=== PATIENT | male | born 1950 | race Hispanic/Latino ===

== ENCOUNTER 2024-02-06 06:49 | Day surgery (SDC) | payer OTHER, MEDICARE ==
[2024-02-04 12:15] LABS: BASOPHILS # (AUTO) 0.02 K/uL (0.00-0.20); BASOPHILS % (AUTO) 0.2 % (0.0-5.0); EOSINOPHILS # (AUTO) 0.23 K/uL (0.00-0.70); EOSINOPHILS % (AUTO) 2.3 % (0.0-8.0); HEMATOCRIT 36.1 % (42-54); IMMATURE GRANULOCYTE ABSOLUTE 0.06 K/uL (0-1); LYMPHOCYTES % (AUTO) 20.2 % (21.0-51.0); MEAN CORPUSCULAR HEMOGLOBIN 25.3 pg (27.0-33.0); MEAN CORPUSCULAR HGB CONC 31.6 g/dL (32.0-36.0); MONOCYTES # (AUTO) 0.7 K/uL (0.1-1.0); MONOCYTES % (AUTO) 6.7 % (3.0-13.0); PLATELET COUNT (AUTO) 261 K/uL (130-400); RED BLOOD CELL COUNT(AUTO) 4.51 MIL/uL (4.50-6.20); RED CELL DISTRIBUTION WIDTH 13.5 % (11.0-15.5)
[2024-02-04 12:16] VITALS: BP 189/83; PULSE 61; RESP 18
[2024-02-04 12:26] LABS: POTASSIUM 3.7 mmol/L (3.5-5.1)
[~2024-02-06] VITALS: Ht 154.9 cm; Wt 47.7 kg
[2024-02-06] VITALS (15 sets, daily range): BP systolic 133–167; BP diastolic 69–91; PULSE 60–66; RESP 10–18
[~2024-02-06 06:49] MED LIST: ATOR40TA71 PO; DUTA0.5C37 PO; METF-446 PO; TAMS-1 PO; VALS40TA11 PO
[2024-02-06] MEDS ORDERED: AMOX1TAB16 PO (07:58)
[2024-02-06] MEDS: 0.9%NACL 1000ML 1,000 ML IV ONE (08:20)
[2024-02-06] MEDS: GENTAMICIN 80 MG/NS 100 ML PB 100 ML IV ONE (08:21)
[2024-02-06] MEDS ORDERED: FAMOTIDINE 20MG VIAL IV ONE (10:40)
[2024-02-06] MEDS ORDERED: acetaMINOPHEN 1,000 MG/100 ML VIAL IV ONE (10:40)
[2024-02-06] MEDS ORDERED: LIDOCAINE PF 100MG/5ML (2%) SYRINGE 5ML ONE (11:08)
[2024-02-06] MEDS ORDERED: ROCURONIUM BROMIDE 10MG/1ML 5ML VL ONE (11:09)
[2024-02-06] MEDS ORDERED: PROPOFOL 10 MG/ML 20ML VIAL IV ONE (11:09)
[2024-02-06] MEDS ORDERED: FENTANYL CITRATE PF 50 MCG/1 ML 2ML VIAL ONE (11:10)
[2024-02-06] MEDS ORDERED: DEXAMETHASONE SOD PHOSPHATE 10MG/ML 1ML VIAL ONE (11:39)
[2024-02-06] MEDS ORDERED: ONDANSETRON 4MG INJ ONE (11:40)
[2024-02-06] MEDS: ZOSYN 3.375GM+NS 50ML 50 ML ONE (11:45)
[2024-02-06] MEDS ORDERED: KETAMINE HCL 100 MG/ML 5ML VIAL IJ ONE (12:20)
[2024-02-06] MEDS ORDERED: GLYCOPYRROLATE 0.2 MG/ML 5 ML VIAL ONE (12:41)
[2024-02-06] MEDS ORDERED: NEOSTIGMINE METHYLSULFATE 1MG/ML IV ONE (12:41)
[2024-02-06] MEDS: PHENAZOPYRIDINE HCL 200 MG TABLET PO ONE (14:28)
== END 2024-02-06 14:30 | disposition home or self-care (01) ==
LOC: DAH 06:49
PROVIDERS: ATTEND Urology
DX: N40.1 Benign prostatic hyperplasia with lower urinary tract symptoms (principal); R33.8 Other retention of urine; N30.20 Other chronic cystitis without hematuria; R33.9 Retention of urine, unspecified; I45.10 Unspecified right bundle-branch block; I10 Essential (primary) hypertension; E11.9 Type 2 diabetes mellitus without complications; Z88.8 Allergy status to other drugs, medicaments and biological substances; Z79.899 Other long term (current) drug therapy
CPT/HCPCS: 80048; 85025; 87086 ×2; 36415; 93005; 52648; 87186; 82948; A6260; A4663; J7120; A4354; J3490 ×4; J3010; J1100; J7030; J2001; J2704; J2405; J2710; J2543; J1580; A4358; A4222; A4221; A4223 ×2; A4600